=== PATIENT | female | born 1985 | race African-American/Black ===

== ENCOUNTER 2019-03-05 02:28 | Emergency (ER) | payer MEDICAID ==
[~2019-03-05] VITALS: Ht 165.1 cm; Wt 66.0 kg
[2019-03-05 03:02] LABS: CLARITY URINE TURBID (CLEAR); COLOR URINE YELLOW (YELLOW); KETONES URINE NEGATIVE (NEGATIVE); LEUKOCYTE ESTERASE URINE TRACE (NEGATIVE); NITRITE URINE NEGATIVE (NEGATIVE); OCCULT BLOOD URINE NEGATIVE (NEGATIVE); PROTEIN URINE TRACE (NEGATIVE); SPECIFIC GRAVITY URINE 1.024 (1.005-1.030)
[2019-03-05] MEDS ORDERED: KETOROLAC 30MG/ML VIAL IM ONE (03:15)
[2019-03-05 05:30] VITALS: BP 118/84
== END 2019-03-05 05:30 | disposition home or self-care (01) ==
LOC: ER 02:28
DX: N39.0 Urinary tract infection, site not specified (principal); R10.9 Unspecified abdominal pain; Z88.3 Allergy status to other anti-infective agents
CPT/HCPCS: 76830; 76856; 81003; 81025; 96372; 99284; J1885

== ENCOUNTER 2019-04-06 10:02 | Emergency (ER) | payer MEDICAID ==
[~2019-04-06] VITALS: Ht 162.6 cm; Wt 68.0 kg
[2019-04-06 10:49] VITALS: BP 120/75
== END 2019-04-06 12:20 | disposition left against medical advice (07) ==
LOC: ER 10:02
DX: Z53.21 Procedure and treatment not carried out due to patient leaving prior to being seen by health care provider (principal); Z88.3 Allergy status to other anti-infective agents; Z88.8 Allergy status to other drugs, medicaments and biological substances